=== PATIENT | male | born 1970 | race African-American/Black ===

== ENCOUNTER 2022-04-14 14:38 | Inpatient (IN) | payer MEDICAID ==
[~2022-04-14] VITALS: Ht 177.8 cm; Wt 108.4 kg
[2022-04-14] MEDS ORDERED: DEXT 5%/0.9% NACL 1,000 ML IV ONE (15:30)
[2022-04-14 15:41] LABS: MEAN CORPUSCULAR HEMOGLOBIN 31.8 pg (28.0-32.0); MEAN CORPUSCULAR VOLUME 94.5 fL (80.0-94.0); MEAN PLATELET VOLUME 8.3 fl (7.4-10.4); PLATELET 56 x1000/uL (130-400); RED BLOOD CELL COUNT 2.15 mill/uL (4.7-6.1); RED CELL DISTRIBUTION WIDTH 21.1 % (11.6-14.6)
[2022-04-14 15:43] LABS: HEMATOCRIT. 20.3 % (42.0-52.0); HEMOGLOBIN. 6.8 g/dL (14.0-18.0)
[2022-04-14 15:49] LABS: INR 2.2
[2022-04-14 15:57] LABS: CHLORIDE 93 mEq/L (98-107)
[2022-04-14 16:24] LABS: CLARITY URINE CLOUDY (CLEAR); COLOR URINE ORANGE (YELLOW); PH URINE 5.5 (4.5-8.0); PROTEIN URINE 1+ (NEGATIVE); SPECIFIC GRAVITY URINE 1.017 (1.005-1.030)
[2022-04-14 16:25] LABS: KETONES URINE NEGATIVE (NEGATIVE); LEUKOCYTE ESTERASE URINE 2+ (NEGATIVE); NITRITE URINE POSITIVE (NEGATIVE); OCCULT BLOOD URINE 2+ (NEGATIVE)
[2022-04-14] MEDS ORDERED: CALCIUM GLUCONATE 100MG/ML 10ML VIAL IV NR (16:30)
[2022-04-14] MEDS ORDERED: ASPIRIN 81MG TABLET PO ONE (16:30)
[2022-04-14] MEDS ORDERED: MAGNESIUM 1 G PREMIX 100 ML IV NR (16:30)
[2022-04-14] MEDS ORDERED: CEFTRIAXONE 1 G PREMIX 50 ML IV NR (17:00)
[2022-04-14] MEDS ORDERED: NITROGLYCERIN 0.4MG TABLET SL SL PRN (17:30)
[2022-04-14] MEDS ORDERED: GUAIFENESIN 200MG/10ML SUGAR FREE UDC PO PRN (17:30)
[2022-04-14] MEDS ORDERED: ONDANSETRON HCL 4MG/2ML INJ IV PRN (17:30)
[2022-04-14] MEDS ORDERED: ACETAMINOPHEN 325MG TABLET PO PRN (17:30)
[2022-04-14] MEDS ORDERED: MAGNESIUM/ALUMINUM HYDROXIDE/SIMETHICONE 30ML UDC PO PRN (17:30)
[2022-04-14] MEDS ORDERED: CLONIDINE 0.1MG TABLET PO PRN (17:30)
[2022-04-14] MEDS ORDERED: DOCUSATE SODIUM 100MG CAPSULE PO PRN (17:30)
[2022-04-14] MEDS ORDERED: NA PHOS,M-B/NA PHOS,DI-BA ENEMA 118ML PR PRN (17:30)
[2022-04-14] MEDS ORDERED: SODIUM CHLORIDE 0.9% 1,000 ML IV SCH (17:30)
[2022-04-14] MEDS ORDERED: SODIUM CHLORIDE 0.9% 1,000 ML IV ONE ×2 (18:00→19:15)
[2022-04-14 18:13] LABS: PLATELET ESTIMATE MARKEDLY DECREASED
[2022-04-14 18:28] LABS: ETHANOL BLOOD < 10 mg/dL; T4 FREE 1.38 ng/dL (0.76-1.46); TOTAL IRON BINDING CAPACITY 89 ug/dL (250-450)
[2022-04-14] MEDS ORDERED: ACETAMINOPHEN 650MG SUPP PR ONE (19:15)
[2022-04-14 20:06] LABS: VITAMIN B12 SERUM 1608 pg/mL (211-911)
[2022-04-14] MEDS ORDERED: OCTREOTIDE 1,000 MCG in SODIUM CHLORIDE 0.9% 100 ML IV SCH ×2 (21:30→22:00)
[2022-04-14] MEDS ORDERED: PANTOPRAZOLE 80 MG in SODIUM CHLORIDE 0.9% 100 ML IV SCH (21:30)
[2022-04-14 22:28] LABS: CREATINE KINASE MB FRACTION 98.1 ng/mL (0.5-3.6)
[2022-04-14] MEDS ORDERED: VANCOMYCIN 1G PREMIX 200 ML IV NR (23:00)
[2022-04-14] MEDS: PANTOPRAZOLE 80 MG in SODIUM CHLORIDE 0.9% 100 ML IV SCH (23:00)
[2022-04-14] MEDS ORDERED: VANCOMYCIN 1500MG in DEXTROSE 5% WATER 250ML IV NR (23:45)
[2022-04-15] VITALS (94 sets, daily range): BP systolic 62–191; BP diastolic 22–163
[2022-04-15 02:22] LABS: BG BASE EXCESS -15.6 mmol/L (-2.0-2.0); BG CARBOXYHEMOGLOBIN 0.9 % (0.5-1.5); BG DEOXYHEMOGLOBIN 2.2 % (0.0-5.0); BG HCO3 ACT 8.6 mmol/L (22.0-26.0); BG METHEMOGLOBIN 0.2 % (0.0-1.5); BG OXYGEN SATURATION 97.8 % (92.0-98.5); BG OXYHEMOGLOBIN 96.7 % (94.0-97.0); BG PCO2 17.4 mmHg (35.0-45.0); BG PO2 110.7 mmHg (75.0-100.0); BG SAMPLE SITE RIGHT RADIAL; BG TOTAL HEMOGLOBIN 10.4 g/dL (12.0-18.0); BG VENT MODE NASAL CANNULA
[2022-04-15] MEDS ORDERED: NOREPINEPHRINE 8 MG in DEXT 5% WATER 242 ML IV PRN (02:45)
[2022-04-15] MEDS ORDERED: IPRATROPIUM/ALBUTEROL 0.5-3(2.5)MG/3ML NEB HHN PRN (03:00)
[2022-04-15] MEDS: DEXTROSE 50% WATER 50ML SYRINGE IV PRN (03:09)
[2022-04-15] MEDS: NOREPINEPHRINE 32 MG in DEXT 5% WATER 242 ML IV PRN ×2 (03:20→23:10)
[2022-04-15] MEDS: PANTOPRAZOLE 80 MG in SODIUM CHLORIDE 0.9% 100 ML IV SCH ×2 (05:35→15:19)
[2022-04-15 05:56] LABS: MEAN CORPUSCULAR VOLUME 90.6 fL (80.0-94.0); MEAN PLATELET VOLUME 8.4 fl (7.4-10.4); RED BLOOD CELL COUNT 3.53 mill/uL (4.7-6.1)
[2022-04-15] MEDS: MEROPENEM 1,000 MG in SODIUM CHLORIDE 0.9% 100 ML IV SCH ×2 (06:00→18:02)
[2022-04-15 06:17] LABS: PHOSPHORUS 5.1 mg/dL (2.5-4.9)
[2022-04-15] MEDS: BLOOD SUGAR DIAGNOSTIC STRIP TEST SCH ×4 (06:29→23:29)
[2022-04-15 06:45] LABS: CREATINE KINASE MB FRACTION 156.6 ng/mL (0.5-3.6)
[2022-04-15 07:11] LABS: PLATELET ESTIMATE MARKEDLY DECREASED
[2022-04-15 07:14] LABS: PLATELET 47 x1000/uL (130-400)
[2022-04-15 08:34] LABS: BG BASE EXCESS -13.9 mmol/L (-2.0-2.0); BG DEOXYHEMOGLOBIN 4.2 % (0.0-5.0); BG FRACTION INSPIRED OXYGEN 28; BG HCO3 ACT 9.8 mmol/L (22.0-26.0); BG METHEMOGLOBIN 0.3 % (0.0-1.5); BG OXYGEN SATURATION 95.7 % (92.0-98.5); BG OXYHEMOGLOBIN 94.5 % (94.0-97.0); BG PH 7.332 (7.350-7.450); BG PO2 84.1 mmHg (75.0-100.0); BG SAMPLE SITE LEFT RADIAL; BG TOTAL HEMOGLOBIN 11.4 g/dL (12.0-18.0); BG TOTAL RESPIRATORY RATE 24 b/min; BG VENT MODE NASAL CANNULA
[2022-04-15] MEDS ORDERED: PANTOPRAZOLE SODIUM 40 MG/VIAL IV SCH (09:00)
[2022-04-15 10:06] LABS: SODIUM URINE RANDOM 13 mEq/L
[2022-04-15 10:14] LABS: *AMPHETAMINES SCREEN URINE NEGATIVE (NEGATIVE); *BARBITURATES SCREEN URINE NEGATIVE (NEGATIVE); *BENZODIAZEPINES SCREEN URINE NEGATIVE (NEGATIVE); *COCAINE SCREEN URINE NEGATIVE (NEGATIVE); CANNABINOID URINE SCREEN NEGATIVE (NEGATIVE); METHADONE URINE SCREEN NEGATIVE (NEGATIVE); OPIATES URINE SCREEN NEGATIVE (NEGATIVE); PHENCYCLIDINE URINE SCREEN NEGATIVE (NEGATIVE)
[2022-04-15] MEDS ORDERED: VANCOMYCIN 500MG PREMIX 100 ML IV NR (12:00)
[2022-04-15] MEDS: SODIUM BICARBONATE 150 MEQ in DEXTROSE 5% WATER 1,000 ML IV SCH (12:20)
[2022-04-15 13:00] LABS: HEMATOCRIT. 33.6 % (42.0-52.0); HEMOGLOBIN. 11.5 g/dL (14.0-18.0); MEAN CORPUSCULAR HEMOGLOBIN 30.9 pg (28.0-32.0); MEAN CORPUSCULAR VOLUME 90.4 fL (80.0-94.0); MEAN PLATELET VOLUME 9.3 fl (7.4-10.4); RED BLOOD CELL COUNT 3.71 mill/uL (4.7-6.1); RED CELL DISTRIBUTION WIDTH 20.4 % (11.6-14.6)
[2022-04-15 13:14] LABS: CHLORIDE 96 mEq/L (98-107)
[2022-04-15 14:52] LABS: PLATELET ESTIMATE MARKEDLY DECREASED
[2022-04-15 14:53] LABS: PLATELET 46 x1000/uL (130-400)
[2022-04-15] MEDS: PHYTONADIONE 10MG/ML AMP SUBCUT SCH (15:15)
[2022-04-15] MEDS: OCTREOTIDE 1,000 MCG in SODIUM CHLORIDE 0.9% 98 ML IV SCH ×2 (15:19→23:10)
[2022-04-15] MEDS: LACTULOSE 20G/30ML UDC PO SCH ×2 (15:49→23:09)
[2022-04-15 17:40] LABS: FIBRINOGEN 146 mg/dL (200-400)
[2022-04-15 17:53] LABS: D-DIMER > 35.20 mg/L FEU (<0.50)
[2022-04-15] MEDS: PANTOPRAZOLE SODIUM 40 MG/VIAL IV SCH (18:02)
[2022-04-15 19:08] LABS: HAPTOGLOBIN < 8 mg/dL (30-200)
[2022-04-15] MEDS ORDERED: SODIUM BICARBONATE 8.4% 1 MEQ/ML 50ML SYR IV NR (21:00)
[2022-04-15] MEDS ORDERED: VANCOMYCIN 1GM PMX (XELLIA) 200 ML IV SCH (22:00)
[2022-04-16] VITALS (100 sets, daily range): BP systolic 75–198; BP diastolic 24–126
[2022-04-16] MEDS: SODIUM BICARBONATE 150 MEQ in DEXTROSE 5% WATER 1,000 ML IV SCH ×2
[2022-04-16] MEDS: LACTULOSE 20G/30ML UDC PO SCH ×3 (05:20→22:20)
[2022-04-16 05:25] LABS: HEMATOCRIT. 28.8 % (42.0-52.0); MEAN CORPUSCULAR HEMOGLOBIN 30.9 pg (28.0-32.0); MEAN CORPUSCULAR VOLUME 89.3 fL (80.0-94.0); MEAN PLATELET VOLUME 9.4 fl (7.4-10.4); RED BLOOD CELL COUNT 3.22 mill/uL (4.7-6.1)
[2022-04-16 05:35] LABS: CHLORIDE 92 mEq/L (98-107)
[2022-04-16 05:46] LABS: INR 1.9; PROTHROMBIN TIME 19.8 sec (9.6-11.0)
[2022-04-16 06:01] LABS: CREATINE KINASE 3907 IU/L (39-308); PHOSPHORUS 5.1 mg/dL (2.5-4.9)
[2022-04-16] MEDS: BLOOD SUGAR DIAGNOSTIC STRIP TEST SCH ×4 (06:19→23:55)
[2022-04-16] MEDS: MEROPENEM 1,000 MG in SODIUM CHLORIDE 0.9% 100 ML IV SCH ×2 (06:21→20:03)
[2022-04-16 08:00] LABS: PLATELET 40 x1000/uL (130-400); PLATELET ESTIMATE MARKEDLY DECREASED
[2022-04-16 08:23] LABS: BG BASE EXCESS -4.4 mmol/L (-2.0-2.0); BG CARBOXYHEMOGLOBIN 1.1 % (0.5-1.5); BG DEOXYHEMOGLOBIN 7.3 % (0.0-5.0); BG FRACTION INSPIRED OXYGEN 21; BG HCO3 ACT 17.7 mmol/L (22.0-26.0); BG METHEMOGLOBIN 0.2 % (0.0-1.5); BG OXYGEN SATURATION 92.6 % (92.0-98.5); BG OXYHEMOGLOBIN 91.4 % (94.0-97.0); BG PH 7.503 (7.350-7.450); BG PO2 64.4 mmHg (75.0-100.0); BG SAMPLE SITE RIGHT RADIAL; BG TOTAL HEMOGLOBIN 9.1 g/dL (12.0-18.0); BG VENT MODE ROOM AIR
[2022-04-16] MEDS ORDERED: ALBUMIN HUMAN 25GM/100ML (25%) IV NR (09:30)
[2022-04-16] MEDS: PANTOPRAZOLE SODIUM 40 MG/VIAL IV SCH ×2 (10:10→17:16)
[2022-04-16] MEDS: PHYTONADIONE 10MG/ML AMP SUBCUT SCH (10:10)
[2022-04-16] MEDS: SODIUM CHLORIDE 0.9% 1,000 ML IV SCH ×2 (10:11→19:00)
[2022-04-16] MEDS: THIAMINE HCL 100MG TABLET PO SCH ×2 (13:24→17:16)
[2022-04-16] MEDS ORDERED: MEROPENEM 1,000 MG in SODIUM CHLORIDE 0.9% 100 ML IV SCH (18:00)
[2022-04-16] MEDS ORDERED: VANCOMYCIN 1GM PMX (XELLIA) 200 ML IV SCH (18:00)
[2022-04-16] MEDS: OCTREOTIDE 1,000 MCG in SODIUM CHLORIDE 0.9% 98 ML IV SCH (19:00)
[2022-04-16 23:47] LABS: BASOPHILS % 0.3 % (0.0-2.0); EOSINOPHILS % 0.3 % (0.0-5.0); HEMOGLOBIN. 7.1 g/dL (14.0-18.0); LYMPHOCYTES % 8.1 % (20.0-50.0); MEAN CORPUSCULAR HEMOGLOBIN 31.1 pg (28.0-32.0); MEAN CORPUSCULAR VOLUME 89.4 fL (80.0-94.0); MEAN PLATELET VOLUME 9.1 fl (7.4-10.4); MONOCYTES % 7.6 % (2.0-8.0); NEUTROPHILS % 83.7 % (40.0-76.0); RED BLOOD CELL COUNT 2.29 mill/uL (4.7-6.1); RED CELL DISTRIBUTION WIDTH 20.1 % (11.6-14.6)
[2022-04-17] VITALS (100 sets, daily range): BP systolic 81–164; BP diastolic 33–123
[2022-04-17 00:16] LABS: HEMATOCRIT. 20.5 % (42.0-52.0)
[2022-04-17 00:17] LABS: PLATELET 22 x1000/uL (130-400)
[2022-04-17 05:40] LABS: BASOPHILS % 0.2 % (0.0-2.0); EOSINOPHILS % 0.2 % (0.0-5.0); HEMOGLOBIN. 7.1 g/dL (14.0-18.0); LYMPHOCYTES % 8.9 % (20.0-50.0); MEAN CORPUSCULAR HEMOGLOBIN 31.4 pg (28.0-32.0); MEAN CORPUSCULAR VOLUME 89.7 fL (80.0-94.0); MEAN PLATELET VOLUME 8.7 fl (7.4-10.4); MONOCYTES % 6.7 % (2.0-8.0); RED BLOOD CELL COUNT 2.25 mill/uL (4.7-6.1); RED CELL DISTRIBUTION WIDTH 19.9 % (11.6-14.6)
[2022-04-17 05:42] LABS: CHLORIDE 98 mEq/L (98-107)
[2022-04-17] MEDS: LACTULOSE 20G/30ML UDC PO SCH ×3 (05:42→21:07)
[2022-04-17] MEDS: SODIUM CHLORIDE 0.9% 1,000 ML IV SCH ×2 (05:43→16:29)
[2022-04-17 05:45] LABS: INR 1.6; PROTHROMBIN TIME 16.3 sec (9.6-11.0)
[2022-04-17] MEDS: BLOOD SUGAR DIAGNOSTIC STRIP TEST SCH ×3 (05:50→18:00)
[2022-04-17 05:54] LABS: PHOSPHORUS 4.8 mg/dL (2.5-4.9)
[2022-04-17 06:01] LABS: HEMATOCRIT. 20.2 % (42.0-52.0); PLATELET 20 x1000/uL (130-400)
[2022-04-17 08:49] LABS: BG BASE EXCESS -1.6 mmol/L (-2.0-2.0); BG CARBOXYHEMOGLOBIN 1.7 % (0.5-1.5); BG DEOXYHEMOGLOBIN 4.9 % (0.0-5.0); BG FRACTION INSPIRED OXYGEN 21; BG HCO3 ACT 22.2 mmol/L (22.0-26.0); BG METHEMOGLOBIN 0.3 % (0.0-1.5); BG OXYHEMOGLOBIN 93.1 % (94.0-97.0); BG PH 7.446 (7.350-7.450); BG PO2 77.7 mmHg (75.0-100.0); BG SAMPLE SITE LEFT BRACHIAL; BG TOTAL HEMOGLOBIN 6.9 g/dL (12.0-18.0); BG VENT MODE ROOM AIR
[2022-04-17] MEDS: PANTOPRAZOLE SODIUM 40 MG/VIAL IV SCH ×2 (09:01→16:32)
[2022-04-17] MEDS: MEROPENEM 1,000 MG in SODIUM CHLORIDE 0.9% 100 ML IV SCH ×2 (09:01→21:07)
[2022-04-17] MEDS: THIAMINE HCL 100MG TABLET PO SCH ×3 (09:02→16:32)
[2022-04-17] MEDS: PHYTONADIONE 10MG/ML AMP SUBCUT SCH (09:02)
[2022-04-17 13:06] LABS: HIV SCREEN 4G Non Reactive (Non Reactive)
[2022-04-17 14:59] LABS: HEPATITIS B SURFACE ANTIGEN NEGATIVE
[2022-04-18] VITALS (42 sets, daily range): BP systolic 85–152; BP diastolic 50–88
[2022-04-18] MEDS: BLOOD SUGAR DIAGNOSTIC STRIP TEST SCH ×5 (00:33→23:57)
[2022-04-18] MEDS: SODIUM CHLORIDE 0.9% 1,000 ML IV SCH ×3 (01:57→21:06)
[2022-04-18 04:11] LABS: BASOPHILS % 0.2 % (0.0-2.0); EOSINOPHILS % 0.6 % (0.0-5.0); HEMOGLOBIN. 7.7 g/dL (14.0-18.0); LYMPHOCYTES % 10.2 % (20.0-50.0); MEAN CORPUSCULAR HEMOGLOBIN 31.2 pg (28.0-32.0); MEAN CORPUSCULAR VOLUME 89.6 fL (80.0-94.0); MEAN PLATELET VOLUME 8.9 fl (7.4-10.4); MONOCYTES % 9.8 % (2.0-8.0); NEUTROPHILS % 79.2 % (40.0-76.0); RED BLOOD CELL COUNT 2.45 mill/uL (4.7-6.1); RED CELL DISTRIBUTION WIDTH 19.4 % (11.6-14.6)
[2022-04-18 04:18] LABS: INR 1.6; PROTHROMBIN TIME 16.8 sec (9.6-11.0)
[2022-04-18 04:30] LABS: PHOSPHORUS 4.8 mg/dL (2.5-4.9)
[2022-04-18 04:50] LABS: PLATELET 21 x1000/uL (130-400)
[2022-04-18] MEDS: LACTULOSE 20G/30ML UDC PO SCH ×3 (06:13→21:08)
[2022-04-18] MEDS: PANTOPRAZOLE SODIUM 40 MG/VIAL IV SCH ×2 (09:09→16:37)
[2022-04-18] MEDS: THIAMINE HCL 100MG TABLET PO SCH ×3 (09:09→16:37)
[2022-04-18] MEDS: MEROPENEM 1,000 MG in SODIUM CHLORIDE 0.9% 100 ML IV SCH ×2 (09:09→19:20)
[2022-04-18] MEDS: PHYTONADIONE 10MG/ML AMP SUBCUT SCH (09:09)
[2022-04-19] VITALS (43 sets, daily range): BP systolic 105–173; BP diastolic 49–95
[2022-04-19] MEDS: BLOOD SUGAR DIAGNOSTIC STRIP TEST SCH ×3 (05:14→18:08)
[2022-04-19] MEDS: LACTULOSE 20G/30ML UDC PO SCH ×3 (05:16→22:23)
[2022-04-19 06:04] LABS: BASOPHILS % 0.4 % (0.0-2.0); EOSINOPHILS % 0.7 % (0.0-5.0); LYMPHOCYTES % 7.5 % (20.0-50.0); MEAN CORPUSCULAR HEMOGLOBIN 31.3 pg (28.0-32.0); MEAN CORPUSCULAR VOLUME 90.9 fL (80.0-94.0); MEAN PLATELET VOLUME 8.4 fl (7.4-10.4); MONOCYTES % 10.4 % (2.0-8.0); RED BLOOD CELL COUNT 2.19 mill/uL (4.7-6.1); RED CELL DISTRIBUTION WIDTH 19.6 % (11.6-14.6)
[2022-04-19 06:11] LABS: CHLORIDE 109 mEq/L (98-107)
[2022-04-19 06:12] LABS: INR 1.6; PROTHROMBIN TIME 16.2 sec (9.6-11.0)
[2022-04-19 06:19] LABS: PHOSPHORUS 4.5 mg/dL (2.5-4.9)
[2022-04-19 06:28] LABS: PLATELET 25 x1000/uL (130-400)
[2022-04-19] MEDS: SODIUM CHLORIDE 0.9% 1,000 ML IV SCH ×2 (06:35→18:03)
[2022-04-19] MEDS: MEROPENEM 1,000 MG in SODIUM CHLORIDE 0.9% 100 ML IV SCH ×2 (07:58→20:15)
[2022-04-19] MEDS: PANTOPRAZOLE SODIUM 40 MG/VIAL IV SCH ×2 (07:58→18:08)
[2022-04-19] MEDS: THIAMINE HCL 100MG TABLET PO SCH ×3 (09:00→18:08)
[2022-04-19] MEDS ORDERED: MAGNESIUM 2 G PREMIX 50 ML IV NR (11:00)
[2022-04-19] MEDS ORDERED: POTASSIUM CHLORIDE INJ 40 MEQ in DEXT 5% WATER 250 ML IV NR (11:00)
[2022-04-19 20:21] LABS: BASOPHILS % 0.4 % (0.0-2.0); EOSINOPHILS % 0.7 % (0.0-5.0); HEMATOCRIT. 25.8 % (42.0-52.0); HEMOGLOBIN. 8.6 g/dL (14.0-18.0); MEAN CORPUSCULAR HEMOGLOBIN 30.7 pg (28.0-32.0); MEAN CORPUSCULAR VOLUME 92.7 fL (80.0-94.0); MEAN PLATELET VOLUME 8.9 fl (7.4-10.4); MONOCYTES % 11.6 % (2.0-8.0); NEUTROPHILS % 77.3 % (40.0-76.0); RED BLOOD CELL COUNT 2.79 mill/uL (4.7-6.1); RED CELL DISTRIBUTION WIDTH 20.4 % (11.6-14.6)
[2022-04-19 20:28] LABS: PLATELET 26 x1000/uL (130-400)
[2022-04-20] VITALS (41 sets, daily range): BP systolic 100–171; BP diastolic 57–94
[2022-04-20] MEDS: SODIUM CHLORIDE 0.9% 1,000 ML IV SCH ×3 (03:39→23:36)
[2022-04-20] MEDS: LACTULOSE 20G/30ML UDC PO SCH ×3 (05:18→22:04)
[2022-04-20 05:21] LABS: BASOPHILS % 0.3 % (0.0-2.0); EOSINOPHILS % 0.9 % (0.0-5.0); HEMATOCRIT. 26.8 % (42.0-52.0); HEMOGLOBIN. 9.2 g/dL (14.0-18.0); LYMPHOCYTES % 9.6 % (20.0-50.0); MEAN CORPUSCULAR VOLUME 92.9 fL (80.0-94.0); MEAN PLATELET VOLUME 8.9 fl (7.4-10.4); NEUTROPHILS % 79.2 % (40.0-76.0); RED BLOOD CELL COUNT 2.88 mill/uL (4.7-6.1); RED CELL DISTRIBUTION WIDTH 21.1 % (11.6-14.6)
[2022-04-20 05:28] LABS: INR 1.6; PROTHROMBIN TIME 16.1 sec (9.6-11.0)
[2022-04-20 05:44] LABS: PLATELET 26 x1000/uL (130-400)
[2022-04-20 06:02] LABS: PHOSPHORUS 4.9 mg/dL (2.5-4.9)
[2022-04-20] MEDS: BLOOD SUGAR DIAGNOSTIC STRIP TEST SCH ×5 (06:47→23:42)
[2022-04-20] MEDS: PANTOPRAZOLE SODIUM 40 MG/VIAL IV SCH ×2 (08:46→18:01)
[2022-04-20] MEDS: MEROPENEM 1,000 MG in SODIUM CHLORIDE 0.9% 100 ML IV SCH ×2 (08:46→20:18)
[2022-04-20] MEDS: THIAMINE HCL 100MG TABLET PO SCH (08:46)
[2022-04-21] VITALS (19 sets, daily range): BP systolic 90–117; BP diastolic 53–73
[2022-04-21 06:01] LABS: BASOPHILS % 0.3 % (0.0-2.0); HEMATOCRIT. 25.1 % (42.0-52.0); HEMOGLOBIN. 8.6 g/dL (14.0-18.0); LYMPHOCYTES % 8.9 % (20.0-50.0); MEAN CORPUSCULAR HEMOGLOBIN 31.4 pg (28.0-32.0); MEAN CORPUSCULAR VOLUME 91.1 fL (80.0-94.0); MEAN PLATELET VOLUME 8.7 fl (7.4-10.4); MONOCYTES % 6.4 % (2.0-8.0); NEUTROPHILS % 83.4 % (40.0-76.0); RED BLOOD CELL COUNT 2.75 mill/uL (4.7-6.1); RED CELL DISTRIBUTION WIDTH 20.3 % (11.6-14.6)
[2022-04-21 06:12] LABS: INR 1.5; PROTHROMBIN TIME 15.5 sec (9.6-11.0)
[2022-04-21 06:45] LABS: PLATELET 30 x1000/uL (130-400)
[2022-04-21] MEDS: LACTULOSE 20G/30ML UDC PO SCH ×3 (06:58→21:34)
[2022-04-21] MEDS: BLOOD SUGAR DIAGNOSTIC STRIP TEST SCH ×3 (07:00→17:57)
[2022-04-21] MEDS ORDERED: POTASSIUM PHOS,M-BASIC-D-BASIC 20 MMOL in DEXT 5% WATER 243.3333 ML IV ONE (07:15)
[2022-04-21] MEDS: MEROPENEM 1,000 MG in SODIUM CHLORIDE 0.9% 100 ML IV SCH (08:02)
[2022-04-21] MEDS: PANTOPRAZOLE SODIUM 40 MG/VIAL IV SCH ×2 (09:00→17:57)
[2022-04-21] MEDS: SODIUM CHLORIDE 0.9% 1,000 ML IV SCH ×2 (09:44→21:35)
[2022-04-21] MEDS ORDERED: ALBUMIN HUMAN 25GM/100ML (25%) IV NR (17:30)
[2022-04-22] VITALS (14 sets, daily range): BP systolic 97–118; BP diastolic 49–63
[2022-04-22] MEDS: CEFAZOLIN 2,000 MG in DEXT 5% WATER 100 ML IV SCH ×3 (04:46→21:32)
[2022-04-22] MEDS: BLOOD SUGAR DIAGNOSTIC STRIP TEST SCH ×4 (07:00→17:49)
[2022-04-22] MEDS: LACTULOSE 20G/30ML UDC PO SCH ×3 (07:00→21:32)
[2022-04-22 08:51] LABS: BASOPHILS % 0.6 % (0.0-2.0); EOSINOPHILS % 0.8 % (0.0-5.0); HEMATOCRIT. 23.3 % (42.0-52.0); HEMOGLOBIN. 7.9 g/dL (14.0-18.0); LYMPHOCYTES % 8.9 % (20.0-50.0); MEAN CORPUSCULAR HEMOGLOBIN 30.9 pg (28.0-32.0); MEAN CORPUSCULAR VOLUME 90.9 fL (80.0-94.0); MEAN PLATELET VOLUME 8.7 fl (7.4-10.4); NEUTROPHILS % 83.7 % (40.0-76.0); RED BLOOD CELL COUNT 2.56 mill/uL (4.7-6.1); RED CELL DISTRIBUTION WIDTH 20.4 % (11.6-14.6)
[2022-04-22] MEDS: PANTOPRAZOLE SODIUM 40 MG/VIAL IV SCH ×2 (08:55→17:54)
[2022-04-22 08:57] LABS: PLATELET 37 x1000/uL (130-400)
[2022-04-22 08:59] LABS: INR 1.6; PROTHROMBIN TIME 16.1 sec (9.6-11.0)
[2022-04-22 09:07] LABS: PHOSPHORUS 6.1 mg/dL (2.5-4.9)
[2022-04-22 09:37] LABS: PLATELET ESTIMATE MARKEDLY DECREASED
[2022-04-22] MEDS ORDERED: POTASSIUM CHLORIDE 20MEQ TABLET SR PO NR (11:00)
[2022-04-22] MEDS: SODIUM CHLORIDE 0.9% 1,000 ML IV SCH (11:54)
[2022-04-22 15:10] LABS: FACTOR VIII ACTIVITY 139 % (56-140); VON WILLEBRAND FACTOR ANTIGEN 595 % (50-200)
[2022-04-23] VITALS (12 sets, daily range): BP systolic 100–121; BP diastolic 59–73
[2022-04-23 05:13] LABS: HEMOGLOBIN. 6.9 g/dL (14.0-18.0)
[2022-04-23 05:14] LABS: HEMATOCRIT. 19.9 % (42.0-52.0)
[2022-04-23] MEDS: LACTULOSE 20G/30ML UDC PO SCH ×4 (06:44→22:00)
[2022-04-23] MEDS: CEFAZOLIN 2,000 MG in DEXT 5% WATER 100 ML IV SCH ×3 (06:44→21:30)
[2022-04-23] MEDS: BLOOD SUGAR DIAGNOSTIC STRIP TEST SCH ×4 (06:48→17:17)
[2022-04-23] MEDS: SODIUM CHLORIDE 0.9% 1,000 ML IV SCH (10:01)
[2022-04-23] MEDS: PANTOPRAZOLE SODIUM 40 MG/VIAL IV SCH ×2 (10:01→17:45)
[2022-04-23 11:20] LABS: BASOPHILS % 0.9 % (0.0-2.0); EOSINOPHILS % 0.6 % (0.0-5.0); HEMATOCRIT. 22.5 % (42.0-52.0); HEMOGLOBIN. 7.8 g/dL (14.0-18.0); LYMPHOCYTES % 10.3 % (20.0-50.0); MEAN CORPUSCULAR HEMOGLOBIN 31.6 pg (28.0-32.0); MEAN CORPUSCULAR VOLUME 91.4 fL (80.0-94.0); MEAN PLATELET VOLUME 8.8 fl (7.4-10.4); MONOCYTES % 5.8 % (2.0-8.0); NEUTROPHILS % 82.4 % (40.0-76.0); RED BLOOD CELL COUNT 2.46 mill/uL (4.7-6.1); RED CELL DISTRIBUTION WIDTH 19.8 % (11.6-14.6)
[2022-04-23 11:27] LABS: INR 1.6; PROTHROMBIN TIME 16.7 sec (9.6-11.0)
[2022-04-23] MEDS ORDERED: PHYTONADIONE 10MG/ML AMP SUBCUT NR (12:30)
[2022-04-23] MEDS: THIAMINE HCL 100MG TABLET PO SCH (13:16)
[2022-04-23] MEDS: MULTIVITAMINS,THER W-MINERALS TABLET PO SCH (13:17)
[2022-04-23 13:54] LABS: PLATELET 32 x1000/uL (130-400)
[2022-04-23] MEDS ORDERED: POTASSIUM CHLORIDE 20MEQ/PACKET PO NR (17:45)
[2022-04-23] MEDS: RIFAXIMIN 550 MG TABLET PO SCH ×2 (21:00→21:31)
[2022-04-24] VITALS (73 sets, daily range): BP systolic 72–190; BP diastolic 35–117
[2022-04-24] MEDS: IPRATROPIUM/ALBUTEROL 0.5-3(2.5)MG/3ML NEB NEB PRN ×3 (02:13→16:13)
[2022-04-24] MEDS: CEFAZOLIN 2,000 MG in DEXT 5% WATER 100 ML IV SCH (05:04)
[2022-04-24] MEDS: BLOOD SUGAR DIAGNOSTIC STRIP TEST SCH ×4 (06:34→18:25)
[2022-04-24] MEDS: LACTULOSE 20G/30ML UDC PO SCH ×3 (06:34→22:00)
[2022-04-24 06:40] LABS: BASOPHILS % 3.7 % (0.0-2.0); EOSINOPHILS % 0.6 % (0.0-5.0); HEMATOCRIT. 23.3 % (42.0-52.0); HEMOGLOBIN. 7.9 g/dL (14.0-18.0); LYMPHOCYTES % 10.4 % (20.0-50.0); MEAN CORPUSCULAR HEMOGLOBIN 31.7 pg (28.0-32.0); MEAN CORPUSCULAR VOLUME 93.5 fL (80.0-94.0); MONOCYTES % 5.3 % (2.0-8.0); RED BLOOD CELL COUNT 2.49 mill/uL (4.7-6.1); RED CELL DISTRIBUTION WIDTH 21.6 % (11.6-14.6)
[2022-04-24 06:44] LABS: INR 1.7; PROTHROMBIN TIME 17.2 sec (9.6-11.0)
[2022-04-24] MEDS ORDERED: NOREPINEPHRINE 8MG/250ML PMX 250 ML IV ONE (07:45)
[2022-04-24] MEDS ORDERED: NOREPINEPHRINE 8 MG in DEXTROSE 5% WATER 250 ML IV PRN (08:00)
[2022-04-24] MEDS ORDERED: VASOPRESSIN 20 UNIT in SODIUM CHLORIDE 0.9% 99 ML IV PRN (08:00)
[2022-04-24] MEDS ORDERED: EPINEPHRINE 5 MG in SODIUM CHLORIDE 0.9% 245 ML IV PRN (08:15)
[2022-04-24 08:38] LABS: MEAN PLATELET VOLUME 9.3 fl (7.4-10.4); PLATELET 28 x1000/uL (130-400)
[2022-04-24] MEDS ORDERED: OCTREOTIDE 1,000 MCG in SODIUM CHLORIDE 0.9% 98 ML IV SCH (09:00)
[2022-04-24] MEDS: THIAMINE HCL 100MG TABLET PO SCH (09:00)
[2022-04-24] MEDS: RIFAXIMIN 550 MG TABLET PO SCH ×2 (09:00→21:00)
[2022-04-24] MEDS ORDERED: PHYTONADIONE 10MG/ML AMP SUBCUT NR (09:00)
[2022-04-24] MEDS: MULTIVITAMINS,THER W-MINERALS TABLET PO SCH (09:00)
[2022-04-24] MEDS: PANTOPRAZOLE 80 MG in SODIUM CHLORIDE 0.9% 100 ML IV SCH ×2 (09:04→16:21)
[2022-04-24 09:11] LABS: BG BASE EXCESS -18.8 mmol/L (-2.0-2.0); BG CARBOXYHEMOGLOBIN 1.1 % (0.5-1.5); BG DEOXYHEMOGLOBIN 17.7 % (0.0-5.0); BG HCO3 ACT 12.3 mmol/L (22.0-26.0); BG METHEMOGLOBIN 0.7 % (0.0-1.5); BG OXYHEMOGLOBIN 80.5 % (94.0-97.0); BG PCO2 59.2 mmHg (35.0-45.0); BG PH 6.937 (7.350-7.450); BG PO2 66.2 mmHg (75.0-100.0); BG SAMPLE SITE LEFT BRACHIAL; BG TOTAL HEMOGLOBIN 7.7 g/dL (12.0-18.0); BG VENT MODE VENT - AC
[2022-04-24] MEDS ORDERED: SODIUM BICARBONATE 8.4% 1 MEQ/ML 50ML SYR IV NR ×3 (09:30→14:45)
[2022-04-24] MEDS ORDERED: IPRATROPIUM/ALBUTEROL 0.5-3(2.5)MG/3ML NEB HHN SCH (10:15)
[2022-04-24] MEDS: NOREPINEPHRINE 32 MG in DEXT 5% WATER 218 ML IV PRN ×2 (11:11→20:48)
[2022-04-24 11:47] LABS: BG BASE EXCESS -16.3 mmol/L (-2.0-2.0); BG CARBOXYHEMOGLOBIN 0.9 % (0.5-1.5); BG DEOXYHEMOGLOBIN 9.4 % (0.0-5.0); BG HCO3 ACT 12.5 mmol/L (22.0-26.0); BG METHEMOGLOBIN 0.4 % (0.0-1.5); BG OXYGEN SATURATION 90.5 % (92.0-98.5); BG OXYHEMOGLOBIN 89.3 % (94.0-97.0); BG PCO2 42.2 mmHg (35.0-45.0); BG PH 7.089 (7.350-7.450); BG PO2 72.8 mmHg (75.0-100.0); BG SAMPLE SITE LEFT BRACHIAL; BG TOTAL HEMOGLOBIN 8.5 g/dL (12.0-18.0); BG VENT MODE VENT- PRVC
[2022-04-24] MEDS: MEROPENEM 1,000 MG in SODIUM CHLORIDE 0.9% 100 ML IV SCH (11:55)
[2022-04-24] MEDS: MIDAZOLAM HCL 100 MG in SODIUM CHLORIDE 0.9% 80 ML IV PRN (11:57)
[2022-04-24] MEDS ORDERED: SODIUM BICARBONATE 100 MEQ in SODIUM CHLORIDE 0.45% 1,000 ML IV SCH (12:30)
[2022-04-24 12:53] LABS: HEMATOCRIT 23.7 % (42.0-52.0); HEMOGLOBIN 7.8 g/dL (14.0-18.0); MEAN CORPUSCULAR HEMOGLOBIN 31.2 pg (28.0-32.0); MEAN CORPUSCULAR VOLUME 94.6 fL (80.0-94.0); RED BLOOD CELL COUNT 2.51 mill/uL (4.7-6.1); RED CELL DISTRIBUTION WIDTH 21.6 % (11.6-14.6)
[2022-04-24] MEDS ORDERED: VANCOMYCIN 1.25GM PMX (XELLIA) 250 ML IV SCH (13:00)
[2022-04-24 13:03] LABS: CHLORIDE 117 mEq/L (98-107)
[2022-04-24 13:09] LABS: INR 1.9
[2022-04-24 13:11] LABS: PLATELET 40 x1000/uL (130-400)
[2022-04-24 14:08] LABS: BG BASE EXCESS -15.6 mmol/L (-2.0-2.0); BG CARBOXYHEMOGLOBIN 0.9 % (0.5-1.5); BG DEOXYHEMOGLOBIN 9.2 % (0.0-5.0); BG HCO3 ACT 12.1 mmol/L (22.0-26.0); BG METHEMOGLOBIN 0.2 % (0.0-1.5); BG OXYGEN SATURATION 90.7 % (92.0-98.5); BG OXYHEMOGLOBIN 89.7 % (94.0-97.0); BG PH 7.145 (7.350-7.450); BG PO2 70.9 mmHg (75.0-100.0); BG SAMPLE SITE ALINE; BG TOTAL HEMOGLOBIN 8.5 g/dL (12.0-18.0); BG VENT MODE VENT- PRVC
[2022-04-24] MEDS: SODIUM BICARBONATE 150 MEQ in DEXTROSE 5% WATER 1,000 ML IV SCH (16:21)
[2022-04-24 16:46] LABS: CLARITY URINE TURBID (CLEAR); COLOR URINE DARK YELLOW (YELLOW); KETONES URINE NEGATIVE (NEGATIVE); LEUKOCYTE ESTERASE URINE 1+ (NEGATIVE); NITRITE URINE POSITIVE (NEGATIVE); OCCULT BLOOD URINE 3+ (NEGATIVE); PROTEIN URINE 3+ (NEGATIVE); SPECIFIC GRAVITY URINE 1.022 (1.005-1.030); UROBILINOGEN URINE 0.2 E.U./dL (0.2-1.0)
[2022-04-24 23:21] LABS: BG BASE EXCESS -13.9 mmol/L (-2.0-2.0); BG CARBOXYHEMOGLOBIN 0.5 % (0.5-1.5); BG DEOXYHEMOGLOBIN 6.2 % (0.0-5.0); BG FRACTION INSPIRED OXYGEN 100; BG HCO3 ACT 13.6 mmol/L (22.0-26.0); BG METHEMOGLOBIN 0.4 % (0.0-1.5); BG OXYGEN SATURATION 93.7 % (92.0-98.5); BG OXYHEMOGLOBIN 92.9 % (94.0-97.0); BG PH 7.172 (7.350-7.450); BG PO2 82.5 mmHg (75.0-100.0); BG SAMPLE SITE ALINE; BG TOTAL HEMOGLOBIN 9.7 g/dL (12.0-18.0); BG VENT MODE PRVC
[2022-04-25] VITALS (96 sets, daily range): BP systolic 62–129; BP diastolic 30–66
[2022-04-25] MEDS: MEROPENEM 1,000 MG in SODIUM CHLORIDE 0.9% 100 ML IV SCH ×2 (00:33→13:57)
[2022-04-25] MEDS: OCTREOTIDE 1,000 MCG in SODIUM CHLORIDE 0.9% 95 ML IV SCH ×2 (00:37→20:00)
[2022-04-25] MEDS ORDERED: SODIUM BICARBONATE 8.4% 1 MEQ/ML 50ML SYR IV NR (02:45)
[2022-04-25] MEDS: NOREPINEPHRINE 32 MG in DEXT 5% WATER 218 ML IV PRN ×4 (03:46→20:55)
[2022-04-25] MEDS: PANTOPRAZOLE 80 MG in SODIUM CHLORIDE 0.9% 100 ML IV SCH ×2 (04:36→16:08)
[2022-04-25] MEDS: SODIUM BICARBONATE 150 MEQ in DEXTROSE 5% WATER 1,000 ML IV SCH ×2 (04:36→17:44)
[2022-04-25 04:47] LABS: BASOPHILS % 1.1 % (0.0-2.0); EOSINOPHILS % 0.5 % (0.0-5.0); HEMATOCRIT. 23.2 % (42.0-52.0); HEMOGLOBIN. 7.9 g/dL (14.0-18.0); LYMPHOCYTES % 13.3 % (20.0-50.0); MEAN CORPUSCULAR HEMOGLOBIN 32.2 pg (28.0-32.0); MEAN CORPUSCULAR VOLUME 94.3 fL (80.0-94.0); MEAN PLATELET VOLUME 9.4 fl (7.4-10.4); MONOCYTES % 5.6 % (2.0-8.0); NEUTROPHILS % 79.5 % (40.0-76.0); RED BLOOD CELL COUNT 2.46 mill/uL (4.7-6.1)
[2022-04-25 05:11] LABS: CHLORIDE 112 mEq/L (98-107)
[2022-04-25 05:20] LABS: PHOSPHORUS 7.2 mg/dL (2.5-4.9)
[2022-04-25 05:31] LABS: PLATELET 31 x1000/uL (130-400)
[2022-04-25 05:36] LABS: INR 2.2; PROTHROMBIN TIME 22.1 sec (9.6-11.0)
[2022-04-25] MEDS: LACTULOSE 20G/30ML UDC PO SCH ×3 (06:00→21:54)
[2022-04-25] MEDS: BLOOD SUGAR DIAGNOSTIC STRIP TEST SCH ×4 (06:01→20:20)
[2022-04-25] MEDS: IPRATROPIUM/ALBUTEROL 0.5-3(2.5)MG/3ML NEB NEB PRN ×3 (08:08→15:53)
[2022-04-25 08:58] LABS: BG BASE EXCESS -8.5 mmol/L (-2.0-2.0); BG CARBOXYHEMOGLOBIN 0.7 % (0.5-1.5); BG DEOXYHEMOGLOBIN 14.4 % (0.0-5.0); BG HCO3 ACT 17.3 mmol/L (22.0-26.0); BG METHEMOGLOBIN 0.3 % (0.0-1.5); BG OXYGEN SATURATION 85.5 % (92.0-98.5); BG OXYHEMOGLOBIN 84.6 % (94.0-97.0); BG PCO2 36.6 mmHg (35.0-45.0); BG PH 7.293 (7.350-7.450); BG PO2 55.1 mmHg (75.0-100.0); BG SAMPLE SITE ALINE; BG TOTAL HEMOGLOBIN 9.3 g/dL (12.0-18.0); BG VENT MODE VENT - AC
[2022-04-25] MEDS: MULTIVITAMINS,THER W-MINERALS TABLET PO SCH (09:00)
[2022-04-25] MEDS: RIFAXIMIN 550 MG TABLET PO SCH ×2 (09:00→20:20)
[2022-04-25] MEDS: THIAMINE HCL 100MG TABLET PO SCH (09:00)
[2022-04-25] MEDS ORDERED: MAGNESIUM 2 G PREMIX 50 ML IV SCH (09:00)
[2022-04-25] MEDS ORDERED: VANCOMYCIN 750MG PMX (XELLIA) 150 ML IV SCH (11:00)
[2022-04-25] MEDS: MIDAZOLAM HCL 100 MG in SODIUM CHLORIDE 0.9% 80 ML IV PRN (16:09)
[2022-04-25 17:14] LABS: BASOPHILS % 1.2 % (0.0-2.0); EOSINOPHILS % 0.7 % (0.0-5.0); HEMATOCRIT. 24.2 % (42.0-52.0); HEMOGLOBIN. 8.3 g/dL (14.0-18.0); LYMPHOCYTES % 16.7 % (20.0-50.0); MEAN CORPUSCULAR HEMOGLOBIN 31.8 pg (28.0-32.0); MEAN CORPUSCULAR VOLUME 92.4 fL (80.0-94.0); MEAN PLATELET VOLUME 9.1 fl (7.4-10.4); MONOCYTES % 5.3 % (2.0-8.0); NEUTROPHILS % 76.1 % (40.0-76.0); RED BLOOD CELL COUNT 2.62 mill/uL (4.7-6.1); RED CELL DISTRIBUTION WIDTH 20.1 % (11.6-14.6)
[2022-04-25 17:29] LABS: PLATELET 44 x1000/uL (130-400)
[2022-04-25 19:40] LABS: BG CARBOXYHEMOGLOBIN 1.5 % (0.5-1.5); BG DEOXYHEMOGLOBIN 15.1 % (0.0-5.0); BG FRACTION INSPIRED OXYGEN 100; BG HCO3 ACT 18.8 mmol/L (22.0-26.0); BG METHEMOGLOBIN 0.5 % (0.0-1.5); BG OXYGEN SATURATION 84.6 % (92.0-98.5); BG OXYHEMOGLOBIN 82.9 % (94.0-97.0); BG PCO2 39.3 mmHg (35.0-45.0); BG PH 7.298 (7.350-7.450); BG PO2 55.7 mmHg (75.0-100.0); BG SAMPLE SITE ALINE; BG TOTAL HEMOGLOBIN 8.1 g/dL (12.0-18.0); BG VENT MODE VENT - PRVC
[2022-04-25] MEDS: VASOPRESSIN 20 UNIT in SODIUM CHLORIDE 0.9% 99 ML IV PRN (19:58)
[2022-04-25] MEDS: ACETAMINOPHEN 325MG TABLET PO PRN ×2 (20:20→20:32)
[2022-04-25] MEDS: PHENYLEPHRINE 100 MG in DEXT 5% WATER 240 ML IV PRN (21:02)
[2022-04-26] VITALS (136 sets, daily range): BP systolic 55–144; BP diastolic 29–88
[2022-04-26] MEDS: BLOOD SUGAR DIAGNOSTIC STRIP TEST SCH ×4 (00:39→17:25)
[2022-04-26] MEDS: VASOPRESSIN 20 UNIT in SODIUM CHLORIDE 0.9% 99 ML IV PRN (00:51)
[2022-04-26] MEDS: ACETAMINOPHEN 325MG TABLET PO PRN ×2 (00:55→22:40)
[2022-04-26] MEDS: PANTOPRAZOLE 80 MG in SODIUM CHLORIDE 0.9% 100 ML IV SCH ×3 (01:02→22:39)
[2022-04-26] MEDS: SODIUM BICARBONATE 150 MEQ in DEXTROSE 5% WATER 1,000 ML IV SCH ×2 (01:31→14:18)
[2022-04-26] MEDS: NOREPINEPHRINE 32 MG in DEXT 5% WATER 218 ML IV PRN ×5 (01:52→22:40)
[2022-04-26 05:37] LABS: BASOPHILS % 1.1 % (0.0-2.0); EOSINOPHILS % 0.6 % (0.0-5.0); HEMOGLOBIN. 8.2 g/dL (14.0-18.0); LYMPHOCYTES % 21.3 % (20.0-50.0); MEAN CORPUSCULAR HEMOGLOBIN 32.7 pg (28.0-32.0); MEAN PLATELET VOLUME 10.2 fl (7.4-10.4); MONOCYTES % 7.5 % (2.0-8.0); NEUTROPHILS % 69.5 % (40.0-76.0); RED CELL DISTRIBUTION WIDTH 21.4 % (11.6-14.6)
[2022-04-26] MEDS: LACTULOSE 20G/30ML UDC PO SCH ×3 (06:00→22:00)
[2022-04-26 06:08] LABS: CHLORIDE 110 mEq/L (98-107)
[2022-04-26 06:17] LABS: PHOSPHORUS 6.5 mg/dL (2.5-4.9)
[2022-04-26 06:32] LABS: PLATELET 38 x1000/uL (130-400)
[2022-04-26 08:26] LABS: BG BASE EXCESS -6.4 mmol/L (-2.0-2.0); BG CARBOXYHEMOGLOBIN 2.8 % (0.5-1.5); BG DEOXYHEMOGLOBIN 4.6 % (0.0-5.0); BG FRACTION INSPIRED OXYGEN 100; BG HCO3 ACT 19.4 mmol/L (22.0-26.0); BG METHEMOGLOBIN 0.3 % (0.0-1.5); BG OXYGEN SATURATION 95.3 % (92.0-98.5); BG OXYHEMOGLOBIN 92.3 % (94.0-97.0); BG PCO2 39.6 mmHg (35.0-45.0); BG PH 7.308 (7.350-7.450); BG PO2 79.9 mmHg (75.0-100.0); BG SAMPLE SITE ALINE; BG TOTAL HEMOGLOBIN 7.7 g/dL (12.0-18.0); BG VENT MODE VENT PRVC
[2022-04-26] MEDS: RIFAXIMIN 550 MG TABLET PO SCH ×2 (08:55→21:00)
[2022-04-26] MEDS: THIAMINE HCL 100MG TABLET PO SCH (08:55)
[2022-04-26] MEDS: MULTIVITAMINS,THER W-MINERALS TABLET PO SCH (08:55)
[2022-04-26] MEDS ORDERED: FUROSEMIDE 100MG/10ML VIAL IVP NR (09:00)
[2022-04-26] MEDS ORDERED: CALCIUM GLUCONATE 1GM PREMIX 50 ML IV NR (10:00)
[2022-04-26] MEDS: MEROPENEM 1,000 MG in SODIUM CHLORIDE 0.9% 100 ML IV SCH ×3 (12:59)
[2022-04-26] MEDS: PHENYLEPHRINE 100 MG in DEXT 5% WATER 240 ML IV PRN (14:22)
[2022-04-26] MEDS: OCTREOTIDE 1,000 MCG in SODIUM CHLORIDE 0.9% 95 ML IV SCH (15:45)
[2022-04-27] VITALS (92 sets, daily range): BP systolic 27–174; BP diastolic 15–114
[2022-04-27] MEDS ORDERED: VANCOMYCIN 750MG PREMIX 150 ML IV NR
[2022-04-27] MEDS: MEROPENEM 1,000 MG in SODIUM CHLORIDE 0.9% 100 ML IV SCH ×3 (00:19→23:43)
[2022-04-27] MEDS: SODIUM BICARBONATE 150 MEQ in DEXTROSE 5% WATER 1,000 ML IV SCH (00:19)
[2022-04-27] MEDS: NOREPINEPHRINE 32 MG in DEXT 5% WATER 218 ML IV PRN ×2 (03:56→17:42)
[2022-04-27] MEDS: LACTULOSE 20G/30ML UDC PO SCH ×3 (06:00→21:21)
[2022-04-27] MEDS: BLOOD SUGAR DIAGNOSTIC STRIP TEST SCH ×4 (06:06→17:43)
[2022-04-27] MEDS: PANTOPRAZOLE 80 MG in SODIUM CHLORIDE 0.9% 100 ML IV SCH ×2 (06:07→17:30)
[2022-04-27 06:19] LABS: CHLORIDE 106 mEq/L (98-107)
[2022-04-27 06:28] LABS: PHOSPHORUS 7.3 mg/dL (2.5-4.9)
[2022-04-27 06:39] LABS: EOSINOPHILS % 0.9 % (0.0-5.0); LYMPHOCYTES % 11.6 % (20.0-50.0); MEAN CORPUSCULAR HEMOGLOBIN 32.4 pg (28.0-32.0); MEAN CORPUSCULAR VOLUME 93.5 fL (80.0-94.0); MEAN PLATELET VOLUME 8.5 fl (7.4-10.4); MONOCYTES % 4.1 % (2.0-8.0); NEUTROPHILS % 82.4 % (40.0-76.0); RED BLOOD CELL COUNT 2.46 mill/uL (4.7-6.1); RED CELL DISTRIBUTION WIDTH 21.5 % (11.6-14.6)
[2022-04-27 06:51] LABS: INR 2.3; PROTHROMBIN TIME 23.5 sec (9.6-11.0)
[2022-04-27] MEDS: MULTIVITAMINS,THER W-MINERALS TABLET PO SCH (08:38)
[2022-04-27] MEDS: THIAMINE HCL 100MG TABLET PO SCH (08:39)
[2022-04-27] MEDS: RIFAXIMIN 550 MG TABLET PO SCH ×2 (08:39→21:00)
[2022-04-27 09:04] LABS: BG BASE EXCESS -8.5 mmol/L (-2.0-2.0); BG CARBOXYHEMOGLOBIN 1.6 % (0.5-1.5); BG HCO3 ACT 17.7 mmol/L (22.0-26.0); BG METHEMOGLOBIN 0.5 % (0.0-1.5); BG OXYGEN SATURATION 89.8 % (92.0-98.5); BG OXYHEMOGLOBIN 87.9 % (94.0-97.0); BG PCO2 39.5 mmHg (35.0-45.0); BG PH 7.269 (7.350-7.450); BG PO2 65.5 mmHg (75.0-100.0); BG SAMPLE SITE ALINE; BG VENT MODE VENT- PRVC
[2022-04-27] MEDS: SODIUM BICARBONATE 100 MEQ in DEXTROSE 5% WATER 1,000 ML IV SCH ×2 (10:00→23:43)
[2022-04-27 10:07] LABS: *CREATININE RANDOM URINE 120.5 mg/dL (Not Estab.); MICROALBUMIN RANDOM URINE 1486.7 ug/mL (Not Estab.)
[2022-04-27 10:22] LABS: PLATELET 26 x1000/uL (130-400)
[2022-04-27] MEDS ORDERED: LACTULOSE ENEMA 1,000ML BOTTLE PR SCH (10:45)
[2022-04-27] MEDS: OCTREOTIDE 1,000 MCG in SODIUM CHLORIDE 0.9% 95 ML IV SCH (12:41)
[2022-04-27] MEDS ORDERED: LACTULOSE 300 ML in WATER FOR IRRIGATION,STERILE 700 ML PR NR (13:00)
[2022-04-27] MEDS: IPRATROPIUM/ALBUTEROL 0.5-3(2.5)MG/3ML NEB NEB PRN (13:34)
[2022-04-27] MEDS: PHENYLEPHRINE 100 MG in DEXT 5% WATER 240 ML IV PRN (17:43)
[2022-04-27] MEDS: CALCIUM GLUCONATE 1GM PREMIX 50 ML IV SCH (18:48)
[2022-04-27] MEDS: IPRATROPIUM/ALBUTEROL 0.5-3(2.5)MG/3ML NEB HHN SCH (21:45)
[2022-04-28] VITALS (94 sets, daily range): BP systolic 22–103; BP diastolic 15–77
[2022-04-28] MEDS: DEXTROSE 50% WATER 50ML SYRINGE IV PRN ×5 (00:19→12:24)
[2022-04-28] MEDS: BLOOD SUGAR DIAGNOSTIC STRIP TEST SCH ×4 (00:23→18:00)
[2022-04-28] MEDS: NOREPINEPHRINE 32 MG in DEXT 5% WATER 218 ML IV PRN ×3 (00:34→10:22)
[2022-04-28] MEDS: PHENYLEPHRINE 100 MG in DEXT 5% WATER 240 ML IV PRN ×2 (00:52→06:22)
[2022-04-28] MEDS: IPRATROPIUM/ALBUTEROL 0.5-3(2.5)MG/3ML NEB HHN SCH ×3 (01:22→13:28)
[2022-04-28] MEDS: PANTOPRAZOLE 80 MG in SODIUM CHLORIDE 0.9% 100 ML IV SCH ×2 (04:34→14:04)
[2022-04-28] MEDS: VASOPRESSIN 20 UNIT in SODIUM CHLORIDE 0.9% 99 ML IV PRN ×2 (04:47→13:48)
[2022-04-28] MEDS: LACTULOSE 20G/30ML UDC PO SCH ×2 (05:10→14:00)
[2022-04-28 05:28] LABS: CHLORIDE 102 mEq/L (98-107); PROTHROMBIN TIME 29.2 sec (9.6-11.0)
[2022-04-28] MEDS: CALCIUM GLUCONATE 1GM PREMIX 50 ML IV SCH ×2 (06:13→18:00)
[2022-04-28 07:16] LABS: MEAN CORPUSCULAR HEMOGLOBIN 32.1 pg (28.0-32.0); MEAN CORPUSCULAR VOLUME 100.5 fL (80.0-94.0); MEAN PLATELET VOLUME 9.9 fl (7.4-10.4); RED BLOOD CELL COUNT 1.64 mill/uL (4.7-6.1); RED CELL DISTRIBUTION WIDTH 22.5 % (11.6-14.6)
[2022-04-28 07:45] LABS: HEMOGLOBIN. 5.3 g/dL (14.0-18.0)
[2022-04-28 07:46] LABS: HEMATOCRIT. 16.5 % (42.0-52.0); PLATELET 10 x1000/uL (130-400)
[2022-04-28 08:58] LABS: BG BASE EXCESS -16.9 mmol/L (-2.0-2.0); BG DEOXYHEMOGLOBIN 10.7 % (0.0-5.0); BG FRACTION INSPIRED OXYGEN 90; BG HCO3 ACT 11.4 mmol/L (22.0-26.0); BG METHEMOGLOBIN 1.1 % (0.0-1.5); BG OXYHEMOGLOBIN 86.2 % (94.0-97.0); BG PCO2 39.3 mmHg (35.0-45.0); BG PO2 80.3 mmHg (75.0-100.0); BG SAMPLE SITE ALINE; BG VENT MODE VENT - PRVC
[2022-04-28] MEDS: RIFAXIMIN 550 MG TABLET PO SCH (09:00)
[2022-04-28] MEDS: THIAMINE HCL 100MG TABLET PO SCH (09:00)
[2022-04-28] MEDS: MULTIVITAMINS,THER W-MINERALS TABLET PO SCH (09:00)
[2022-04-28] MEDS: OCTREOTIDE 1,000 MCG in SODIUM CHLORIDE 0.9% 95 ML IV SCH (09:11)
[2022-04-28] MEDS: MEROPENEM 1,000 MG in SODIUM CHLORIDE 0.9% 100 ML IV SCH (11:39)
[2022-04-28 12:14] LABS: NUCLEATED RED BLOOD CELLS 3 /100 WBC; PLATELET ESTIMATE MARKEDLY DECREASED
[2022-04-28] MEDS: SODIUM BICARBONATE 100 MEQ in DEXTROSE 5% WATER 1,000 ML IV SCH (14:03)
== END 2022-04-28 18:30 | DRG 720 ==
LOC: ER 14:38 → EDBEDREQ 18:35 → EDBEDREQTM 18:35 → CANRESERV 18:50 → ENRESERV 18:50 → EDBEDREQSVC 19:13 → EDBEDREQTM 19:13 → EDBEDREQ 19:37 → ENRESERV 21:51 → MICUNO 23:27 → 3WST 04-21 01:45 → MICUSO 04-24 07:36
PROVIDERS: ADMIT Internal Medicine; ATTEND Internal Medicine
PROC: 06HY33Z Insertion of Infusion Device into Lower Vein, Percutaneous Approach (ICD-10-PCS; principal; 2022-04-14)
PROC: B54BZZA Ultrasonography of Right Lower Extremity Veins, Guidance (ICD-10-PCS; 2022-04-14)
PROC: 30233N1 Transfusion of Nonautologous Red Blood Cells into Peripheral Vein, Percutaneous Approach (ICD-10-PCS; 2022-04-14)
PROC: 02HV33Z Insertion of Infusion Device into Superior Vena Cava, Percutaneous Approach (ICD-10-PCS; 2022-04-16)
PROC: B548ZZA Ultrasonography of Superior Vena Cava, Guidance (ICD-10-PCS; 2022-04-16)
PROC: 5A1955Z Respiratory Ventilation, Greater than 96 Consecutive Hours (ICD-10-PCS; 2022-04-24)
PROC: 0BH17EZ Insertion of Endotracheal Airway into Trachea, Via Natural or Artificial Opening (ICD-10-PCS; 2022-04-24)
PROC: 04HY32Z Insertion of Monitoring Device into Lower Artery, Percutaneous Approach (ICD-10-PCS; 2022-04-24)
PROC: 0BH17EZ Insertion of Endotracheal Airway into Trachea, Via Natural or Artificial Opening (ICD-10-PCS; 2022-04-26)
DX: A41.01 Sepsis due to Methicillin susceptible Staphylococcus aureus (principal); N17.0 Acute kidney failure with tubular necrosis; J80 Acute respiratory distress syndrome; R65.21 Severe sepsis with septic shock; J69.0 Pneumonitis due to inhalation of food and vomit; G93.41 Metabolic encephalopathy; I21.4 Non-ST elevation (NSTEMI) myocardial infarction; L89.150 Pressure ulcer of sacral region, unstageable; E87.29 Other acidosis; D68.9 Coagulation defect, unspecified; E87.1 Hypo-osmolality and hyponatremia; M62.82 Rhabdomyolysis; E16.2 Hypoglycemia, unspecified; E83.42 Hypomagnesemia; N39.0 Urinary tract infection, site not specified; R74.01 Elevation of levels of liver transaminase levels; S40.821A Blister (nonthermal) of right upper arm, initial encounter; S50.821A Blister (nonthermal) of right forearm, initial encounter; S40.222A Blister (nonthermal) of left shoulder, initial encounter; D50.0 Iron deficiency anemia secondary to blood loss (chronic); D69.59 Other secondary thrombocytopenia; D53.9 Nutritional anemia, unspecified; J98.11 Atelectasis; E87.20 Acidosis, unspecified; K74.60 Unspecified cirrhosis of liver; I35.0 Nonrheumatic aortic (valve) stenosis; I50.33 Acute on chronic diastolic (congestive) heart failure; E80.6 Other disorders of bilirubin metabolism; E43 Unspecified severe protein-calorie malnutrition; E86.1 Hypovolemia; E88.09 Other disorders of plasma-protein metabolism, not elsewhere classified; E87.4 Mixed disorder of acid-base balance; K76.6 Portal hypertension; D75.89 Other specified diseases of blood and blood-forming organs; K70.11 Alcoholic hepatitis with ascites; K92.2 Gastrointestinal hemorrhage, unspecified; Z66 Do not resuscitate; Z59.00 Homelessness unspecified; Z28.310 Unvaccinated for COVID-19; X58.XXXA Exposure to other specified factors, initial encounter; Y93.89 Activity, other specified; Y92.89 Other specified places as the place of occurrence of the external cause; Y99.8 Other external cause status
CPT/HCPCS: 31500; 36415; 36573; 36600; 71045; 71250; 74176; 76700; 76705; 80048; 80053; 80076; 80202; 80305; 80320; 81003; 82043; 82140; 82270; 82330; 82375; 82533; 82550; 82553; 82570; 82607; 82728; 82746; 82805; 82962; 83010; 83036; 83540; 83550; 83605; 83615; 83735; 83880; 83930; 83935; 84100; 84134; 84145; 84300; 84425; 84439; 84443; 84484; 84550; 85018; 85025; 85027; 85044; 85240; 85246; 85362; 85379; 85384; 86705; 86709; 86803; 86850; 86900; 86920; 86927; 87070; 87077; 87186; 87340; 87389; 87426; 92610; 93005; 93306; 93970; 94003; 94640; 99291; A6261; C1725; C9113; J0610; J0690; J0696; J2185; J2250; J2354; J2370; J3370; J3430; J3475; J3480; J3490; J7030; J7042; J7050; J7060; J7070; P9016; P9017; P9034; P9047; G0480